=== PATIENT | female | born 1955 | race Caucasian/White ===

== ENCOUNTER 2022-07-09 11:01 | Outpatient (RCR) | payer MEDICARE, BC, SELFPAY | END 2023-02-20 23:59 | disposition home or self-care (01) | PROVIDERS: PCP Physician Assistant; Visit Provider Physician Assistant | DX: R39.15 Urgency of urination (principal); R32 Unspecified urinary incontinence; M25.571 Pain in right ankle and joints of right foot; Z51.89 Encounter for other specified aftercare | CPT/HCPCS: 97110; 97161 ==

== ENCOUNTER 2024-06-21 08:01 | Outpatient (CLI) | payer MEDICARE, BC, SELFPAY | END 2024-06-21 08:02 | disposition home or self-care (01) | LOC: AMB 06-23 02:48 | PROVIDERS: PCP Student in an Organized Health Care Education/Training Program; Visit Provider Family Medicine | DX: M54.9 Dorsalgia, unspecified (principal); R25.2 Cramp and spasm | CPT/HCPCS: A0425; A0427 ==